=== PATIENT | male | born 1975 | race Caucasian/White ===

== ENCOUNTER 2018-05-06 00:18 | Emergency (ER) | payer OTHER ==
[2018-05-06] MEDS ORDERED: MECLIZINE 12.5 MG TAB PO STA (00:44)
[2018-05-06] MEDS ORDERED: SODIUM CHLORIDE 0.9% 1,000 ML IV STA (00:44)
[2018-05-06] MEDS ORDERED: diphenhydrAMINE 50 MG/ML 1 ML VIAL IVP STA (00:44)
[2018-05-06] MEDS ORDERED: ONDANSETRON 4 MG/2 ML VIAL IVP STA (00:44)
--- NOTE | 2018-05-06 00:53 | ED ---
General Adult HPI - General Source: patient, family, RN notes reviewed Mode of arrival: ambulatory Limitations: no limitations <Gordo Carpenter - Last Filed: 05/06/18 02:46> <Neetu Martínez - Last Filed: 05/06/18 03:08> - General Chief complaint: Recheck/Abnormal Lab/Rx Stated complaint: Dizziness, Headache Time Seen by Provider: 05/06/18 00:32 - History of Present Illness Initial comments: This a 42-year-old male presents emergency Department with multiple complaints. Patient states over the last few days she's had a migraine headache which improved but states he still have a slight headache. Patient battling dizziness. He states the dizziness is worse with movement. He does state that he is a diabetic and is noncompliant with his medications. Patient states that he just took Lantus before he came the emergency department. He did check his blood sugar and was over 500 at home. Patient does state that he eats poorly at work because he does not get the very often. Patient denies any fevers or chills. Patient denies any blurred vision. Patient has no focal weakness. Patient had some nausea associated with the dizziness denies any vomiting. He states that he woke up and was artery shaky with his elevated blood sugar. ( Gordo Carpenter) - Related Data Previous Rx's Medication Instructions Recorded Meclizine [Antivert] 25 mg PO TID PRN #15 tab 05/06/18 Allergies Allergy/AdvReac Type Severity Reaction Status Date / Time Penicillins Allergy Rash/Hives Verified 05/06/18 00:30 Review of Systems ROS Other: All systems not noted in ROS Statement are negative. <Gordo Carpenter - Last Filed: 05/06/18 02:46> ROS Other: All systems not noted in ROS Statement are negative. <Neetu Martínez - Last Filed: 05/06/18 03:08> ROS Statement: Those systems with pertinent positive or pertinent negative responses have been documented in the HPI. Past Medical History Past Medical History: Diabetes Mellitus Additional Past Medical History / Comment(s): back pain. arthritis. neuropathy. History of Any Multi-Drug Resistant Organisms: MRSA Date of last positivie culture/infection: 2014 MDRO Source:: nasal abscess. Past Surgical History: Adenoidectomy, Tonsillectomy Additional Past Surgical History / Comment(s): vasectomy. right wrist nerve repair. Past Psychological History: No Psychological Hx Reported Smoking Status: Former smoker Past Alcohol Use History: Occasional Past Drug Use History: None Reported <Gordo Carpenter - Last Filed: 05/06/18 02:46> General Exam Limitations: no limitations General appearance: alert, in no apparent distress Head exam: Present: atraumatic, normocephalic, normal inspection Eye exam: Present: normal appearance, PERRL, EOMI. Absent: scleral icterus, conjunctival injection, periorbital swelling ENT exam: Present: normal exam, normal oropharynx, mucous membranes moist, TM's normal bilaterally Neck exam: Present: normal inspection, full ROM. Absent: tenderness, meningismus, lymphadenopathy Respiratory exam: Present: normal lung sounds bilaterally. Absent: respiratory distress, wheezes, rales, rhonchi, stridor Cardiovascular Exam: Present: normal rhythm, tachycardia, normal heart sounds. Absent: systolic murmur, diastolic murmur, rubs, gallop, clicks GI/Abdominal exam: Present: soft, normal bowel sounds. Absent: distended, tenderness, guarding, rebound, rigid Neurological exam: Present: alert, oriented X3, CN II-XII intact, reflexes normal. Absent: motor sensory deficit Skin exam: Present: warm, dry, intact, normal color. Absent: rash <Gordo Carpenter - Last Filed: 05/06/18 02:46> Course <Gordo Carpenter - Last Filed: 05/06/18 02:46> <Neetu Martínez P - Last Filed: 05/06/18 03:08> Vital Signs 05/06/18 05/06/18 05/06/18 00:24 02:10 02:19 Temperature 98.3 F Pulse Rate 109 H 102 H Respiratory 20 18 18 Rate Blood Pressure 163/102 136/92 O2 Sat by Pulse 96 97 Oximetry 05/06/18 02:58 Temperature 98.7 F Pulse Rate Respiratory Rate Blood Pressure O2 Sat by Pulse Oximetry - Reevaluation(s) Reevaluation #1: 05/06/18 02:48 Patient reevaluated and updated on results. Patient states she feels much improved after IV fluids, Antivert. Patient his dizziness has resolved. (Gordo Carpenter) EKG Findings - EKG Comments: EKG Findings:: EKG performed at 0:42 sinus tachycardia with a rate of 110 FL 1: 30 QRS 94 QT/QTC 340/460 <Gordo Carpenter - Last Filed: 05/06/18 02:46> Medical Decision Making - Lab Data Result diagrams: 05/06/18 00:50 05/06/18 00:50 <Gordo Carpenter - Last Filed: 05/06/18 02:46> - Lab Data Result diagrams: 05/06/18 00:50 05/06/18 00:50 <Neetu Martínez - Last Filed: 05/06/18 03:08> - Medical Decision Making 42-year-old male presented for multiple complaints. Patient did have noted hyperglycemia. Patient was hydrated, given subcu NovoLog. Patient also complained of dizziness which has resolved after Antivert. Patient's EKG, chest x-ray pain labwork unremarkable. Patient will follow-up with PCP. We discussed better control of his diabetes. Patient states he does have an appointment with his primary care physician. (Gordo Carpenter) I was available for consultation in the emergency department. The history and physical exam were done by the midlevel provider. I was consulted for this patient's care. I reviewed the case with the midlevel provider and based on their presentation of the patient, I agree with the assessment, medical decision making and plan of care as documented. (Neetu Martínez) - Lab Data Lab Results 05/06/18 05/06/18 05/06/18 Range/Units 00:37 00:50 00:50 WBC 11.4 H (3.8-10.6) k/uL RBC 5.14 (4.30-5.90) m/uL Hgb 14.2 (13.0-17.5) gm/dL Hct 41.8 (39.0-53.0) % MCV 81.5 (80.0-100.0) fL MCH 27.7 (25.0-35.0) pg MCHC 33.9 (31.0-37.0) g/dL RDW 14.1 (11.5-15.5) % Plt Count 275 (150-450) k/uL Neutrophils % 70 % Lymphocytes % 19 % Monocytes % 6 % Eosinophils % 2 % Basophils % 0 % Neutrophils # 8.0 H (1.3-7.7) k/uL Lymphocytes # 2.2 (1.0-4.8) k/uL Monocytes # 0.7 (0-1.0) k/uL Eosinophils # 0.2 (0-0.7) k/uL Basophils # 0.1 (0-0.2) k/uL Sodium 134 L (137-145) mmol/L Potassium 4.4 (3.5-5.1) mmol/L Chloride 102 (98-107) mmol/L Carbon Dioxide 23 (22-30) mmol/L Anion Gap 9 mmol/L BUN 18 (9-20) mg/dL Creatinine 0.65 L (0.66-1.25) mg/dL Est GFR (CKD-EPI)AfAm >90 (>60 ml/min/1.73 sqM) Est GFR (CKD-EPI)NonAf >90 (>60 ml/min/1.73 sqM) Glucose 383 H (74-99) mg/dL POC Glucose (mg/dL) 362 H (75-99) mg/dL POC Glu [employer] ID Neetu Howell Calcium 9.5 (8.4-10.2) mg/dL Total Bilirubin 0.6 (0.2-1.3) mg/dL AST 26 (17-59) U/L ALT 40 (21-72) U/L Alkaline Phosphatase 84 (38-126) U/L Troponin I (0.000-0.034) ng/mL Total Protein 7.1 (6.3-8.2) g/dL Albumin 3.7 (3.5-5.0) g/dL Urine Color Urine Appearance (Clear) Urine pH (5.0-8.0) Ur Specific [place] (1.001-1.035) Urine Protein (Negative) Urine Glucose (UA) (Negative) Urine Ketones (Negative) Urine Blood (Negative) Urine Nitrite (Negative) Urine Bilirubin (Negative) Urine Urobilinogen (<2.0) mg/dL Ur Leukocyte Esterase (Negative) Acetone, Qual Negative (Negative) 05/06/18 05/06/18 Range/Units 00:50 01:38 WBC (3.8-10.6) k/uL RBC (4.30-5.90) m/uL Hgb (13.0-17.5) gm/dL Hct (39.0-53.0) % MCV (80.0-100.0) fL MCH (25.0-35.0) pg MCHC (31.0-37.0) g/dL RDW (11.5-15.5) % Plt Count (150-450) k/uL Neutrophils % % Lymphocytes % % Monocytes % % Eosinophils % % Basophils % % Neutrophils # (1.3-7.7) k/uL Lymphocytes # (1.0-4.8) k/uL Monocytes # (0-1.0) k/uL Eosinophils # (0-0.7) k/uL Basophils # (0-0.2) k/uL Sodium (137-145) mmol/L Potassium (3.5-5.1) mmol/L Chloride (98-107) mmol/L Carbon Dioxide (22-30) mmol/L Anion Gap mmol/L BUN (9-20) mg/dL Creatinine (0.66-1.25) mg/dL Est GFR (CKD-EPI)AfAm (>60 ml/min/1.73 sqM) Est GFR (CKD-EPI)NonAf (>60 ml/min/1.73 sqM) Glucose (74-99) mg/dL POC Glucose (mg/dL) (75-99) mg/dL POC Glu [employer] ID Calcium (8.4-10.2) mg/dL Total Bilirubin (0.2-1.3) mg/dL AST (17-59) U/L ALT (21-72) U/L Alkaline Phosphatase (38-126) U/L Troponin I 0.016 (0.000-0.034) ng/mL Total Protein (6.3-8.2) g/dL Albumin (3.5-5.0) g/dL Urine Color Light Yellow Urine Appearance Clear (Clear) Urine pH 6.0 (5.0-8.0) Ur Specific [place] 1.024 (1.001-1.035) Urine Protein Trace H (Negative) Urine Glucose (UA) 4+ H (Negative) Urine Ketones Trace H (Negative) Urine Blood Negative (Negative) Urine Nitrite Negative (Negative) Urine Bilirubin Negative (Negative) Urine Urobilinogen <2.0 (<2.0) mg/dL Ur Leukocyte Esterase Negative (Negative) Acetone, Qual (Negative) Disposition Is patient prescribed a controlled substance at d/c from ED?: No Time of Disposition: 02:49 <Gordo Carpenter - Last Filed: 05/06/18 02:46> <Neetu Martínez P - Last Filed: 05/06/18 03:08> Clinical Impression: Vertigo, Hyperglycemia, Headache Disposition: HOME SELF-CARE Condition: Stable Instructions: Vertigo (ED), Diabetic Hyperglycemia (ED) Additional Instructions: Please return to the Emergency Department if symptoms worsen or any other concerns. Prescriptions: Meclizine [Antivert] 25 mg PO TID PRN #15 tab PRN Reason: Vertigo Referrals: None,Stated [REFERRING] - 1-2 days
--- NOTE | 2018-05-06 01:03 | XR ---
EXAMINATION TYPE: XR chest 2V DATE OF EXAM: 05/06/2018 COMPARISON: NONE HISTORY: Dizziness short of breath TECHNIQUE: Frontal and lateral views of the chest are obtained. FINDINGS: Heart and mediastinum are normal. Lungs are clear. Diaphragm is normal. Bony thorax appear s normal. IMPRESSION: Normal chest
[2018-05-06 01:11] LABS: Basophils # (A) 0.1 k/uL (0-0.2); Basophils % (A) 0 %; Eosinophils # (A) 0.2 k/uL (0-0.7); Eosinophils % (A) 2 %; HCT 41.8 % (39.0-53.0); HGB 14.2 gm/dL (13.0-17.5); Lymphocytes # (A) 2.2 k/uL (1.0-4.8); Lymphocytes % (A) 19 %; MCH 27.7 pg (25.0-35.0); MCHC 33.9 g/dL (31.0-37.0); MCV 81.5 fL (80.0-100.0); Monocytes # (A) 0.7 k/uL (0-1.0); Monocytes % (A) 6 %; Neutrophils % (A) 70 %; Platelet Count 275 k/uL (150-450); RBC 5.14 m/uL (4.30-5.90); RDW 14.1 % (11.5-15.5); WBC 11.4 k/uL (3.8-10.6)
[2018-05-06 01:26] LABS: ALT 40 U/L (21-72); AST 26 U/L (17-59); Albumin 3.7 g/dL (3.5-5.0); Alkaline Phosphatase 84 U/L (38-126); Anion Gap 9 mmol/L; Blood Urea Nitrogen 18 mg/dL (9-20); Calcium 9.5 mg/dL (8.4-10.2); Carbon Dioxide 23 mmol/L (22-30); Chloride 102 mmol/L (98-107); Glucose 383 mg/dL (74-99); Potassium 4.4 mmol/L (3.5-5.1); Sodium 134 mmol/L (137-145); Total Bilirubin 0.6 mg/dL (0.2-1.3); Total Protein 7.1 g/dL (6.3-8.2)
[2018-05-06 01:35] LABS: Glucose,Whole Blood 362 mg/dL (75-99)
[2018-05-06 01:54] LABS: Appearance,Urine Clear (Clear); Bilirubin,Urine Negative (Negative); Blood,Urine Negative (Negative); Color,Urine Light Yellow; Glucose,Urine (UA) 4+ (Negative); Ketones,Urine Trace (Negative); Leukocyte Esterase,Urine Negative (Negative); Nitrite,Urine Negative (Negative); Protein,Urine Trace (Negative); Specific Gravity,Urine 1.024 (1.001-1.035); Urobilinogen,Urine <2.0 mg/dL (<2.0)
[2018-05-06 02:13] VITALS: BP 136/92; PULSE 102; RESP 18
[2018-05-06] MEDS ORDERED: INSULIN ASPART 100 UNIT/ML 1 ML 10 ML VIAL SQ ONE (02:13)
[2018-05-06 03:05] VITALS: TEMP 98.7
[2018-05-06 03:23] LABS: Glucose,Whole Blood 314 mg/dL (75-99)
== END 2018-05-06 02:59 | disposition home or self-care (01) ==
LOC: EC 00:18
DX: E11.65 Type 2 diabetes mellitus with hyperglycemia (principal); R51 Headache; R00.0 Tachycardia, unspecified; R11.0 Nausea; Z87.891 Personal history of nicotine dependence; Z88.0 Allergy status to penicillin
CPT/HCPCS: 36415; 93005; 80053; 82009; 84484; 85025; 81003; 71046; 99284; 96374; 96375; 96361; J1200; J2405

== ENCOUNTER 2018-05-26 18:46 | Emergency (ER) | payer OTHER ==
[2018-05-26 19:42] VITALS: TEMP 98.6
[2018-05-26] MEDS ORDERED: CYCLOBENZAPRINE 5 MG TAB PO STA (20:27)
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
[2018-05-26 21:34] VITALS: BP 170/96; PULSE 94; RESP 20
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
== END 2018-05-26 21:55 | disposition home or self-care (01) ==
LOC: EC 18:46
DX: M54.5 Low back pain (principal); M54.2 Cervicalgia; Z86.14 Personal history of Methicillin resistant Staphylococcus aureus infection; Z87.891 Personal history of nicotine dependence; Z88.0 Allergy status to penicillin; V43.52XA Car driver injured in collision with other type car in traffic accident, initial encounter; Y92.410 Unspecified street and highway as the place of occurrence of the external cause
CPT/HCPCS: 70450; 71046; 72100; 72125; 99284

== ENCOUNTER 2020-03-19 11:41 | Emergency (ER) | payer OTHER ==
[2020-03-19 12:03] VITALS: BP 153/92; PULSE 120; RESP 18; TEMP 98.6
[2020-03-19 12:28] LABS: Appearance,Urine Clear (Clear); Bilirubin,Urine Negative (Negative); Blood,Urine Negative (Negative); Color,Urine Yellow; Glucose,Urine (UA) 3+ (Negative); Ketones,Urine Negative (Negative); Leukocyte Esterase,Urine Negative (Negative); Mucus,Urine Few /hpf; Nitrite,Urine Negative (Negative); Protein,Urine 2+ (Negative); Specific Gravity,Urine 1.025 (1.001-1.035); Squamous Epithelial Cell,Urine <1 /hpf (0-4); Urobilinogen,Urine <2.0 mg/dL (<2.0); WBC,Urine <1 /hpf (0-5)
--- NOTE | 2020-03-19 13:18 | ED ---
General Adult HPI - General Chief complaint: Urogenital Stated complaint: Male Time Seen by Provider: 03/19/20 13:04 Source: patient Mode of arrival: ambulatory Limitations: no limitations - History of Present Illness Initial comments: Dictation was produced using Zauber dictation software. please excuse any grammatical, word or spelling errors. This patient was cared for during a federal and state declared state of emergency secondary to Covid 19 Chief Complaint: 44-year-old male presents with left-sided flank pain and testicular pain History of Present Illness: 44-year-old male for the last 3 days has been having worsening left-sided flank pain. He states the flank pain radiates down to his left testicle. Denies any history of kidney stones. No nausea vomiting diarrhea. He reports that his pain is constant and more severe with standing up. Denies any fever or constitutional symptoms. He has past medical history of diabetes and hypertension. Patient force that he has had an abscess to his left groin area in the past. Denies any burning on urination. No changes in his urine color. The ROS documented in this emergency department record has been reviewed and confirmed by me. Those systems with pertinent positive or negative responses have been documented in the HPI. All other systems are other negative and/or noncontributory. PHYSICAL EXAM: General Impression: Alert and oriented x3, not in acute distress HEENT: Normocephalic atraumatic, extra-ocular movements intact, pupils equal and reactive to light bilaterally, mucous membranes moist. Cardiovascular: Heart regular rate and rhythm Chest: Able to complete full sentences, no retractions, no tachypnea Abdomen: abdomen soft, non-tender, non-distended, no organomegaly Musculoskeletal: Pulses present and equal in all extremities, no peripheral edema Motor: no focal deficits noted Neurological: CN II-XII grossly intact, no focal motor or sensory deficits noted : No perennial induration or erythema. Testicles are equal in size. There is no relief of symptoms with elevation of the left testicle. There is no irregularities and texture with palpation of the testicles Skin: Intact with no visualized rashes Psych: Normal affect and mood ED course: 44-year-old male presents with left flank pain and left testicular pain. As upon arrival shows heart rate of 120, worse vital signs within acceptable limits. Laboratory evaluation obtained. Mild leukocytosis of 12.7 with neutrophils 9.2. Metabolic panel shows glucose 280. Urinalysis is negative. Rest metabolic panel is negative. Rest of labs are negative. Computed tomography scan of the abdomen and pelvis shows no acute processes. There are no renal stones or hydronephrosis. Osseous structure does appear to be intact. Scrotal ultrasound shows no testicular torsion or mass. There is a small right-sided hydrocele. This is essentially negative ultrasound of the scrotum. Patient reevaluated at bedside 5 be stable medical condition. Patient be discharged. Patient's s ymptoms likely secondary to musculoskeletal back pain. - Related Data Previous Rx's Medication Instructions Recorded Meclizine [Antivert] 25 mg PO TID PRN #15 tab 05/06/18 Cyclobenzaprine [Flexeril] 10 mg PO TID #20 tab 05/26/18 Ibuprofen [Motrin] 600 mg PO Q6HR PRN #40 day 05/26/18 Allergies Allergy/AdvReac Type Severity Reaction Status Date / Time Penicillins Allergy Rash/Hives Verified 03/19/20 11:59 Review of Systems ROS Statement: Those systems with pertinent positive or pertinent negative responses have been documented in the HPI. ROS Other: All systems not noted in ROS Statement are negative. Past Medical History Past Medical History: Diabetes Mellitus Additional Past Medical History / Comment(s): back pain. arthritis. neuropathy. History of Any Multi-Drug Resistant Organisms: MRSA Date of last positivie culture/infection: 2014 MDRO Source:: nasal abscess. Past Surgical History: Adenoidectomy, Tonsillectomy Additional Past Surgical History / Comment(s): vasectomy. left wrist nerve repair. Past Psychological History: No Psychological Hx Reported Smoking Status: Former smoker Past Alcohol Use History: Occasional Past Drug Use History: Marijuana General Exam Limitations: no limitations Course Vital Signs 03/19/20 11:59 Temperature 98.6 F Pulse Rate 120 H Respiratory 18 Rate Blood Pressure 153/92 O2 Sat by Pulse 97 Oximetry Medical Decision Making - Lab Data Result diagrams: 03/19/20 13:44 03/19/20 13:44 Lab Results 03/19/20 03/19/20 03/19/20 Range/Units 12:19 13:44 13:44 WBC 12.7 H (3.8-10.6) k/uL RBC 5.69 (4.30-5.90) m/uL Hgb 15.9 (13.0-17.5) gm/dL Hct 45.8 (39.0-53.0) % MCV 80.4 (80.0-100.0) fL MCH 27.9 (25.0-35.0) pg MCHC 34.7 (31.0-37.0) g/dL RDW 13.6 (11.5-15.5) % Plt Count 277 (150-450) k/uL MPV 7.1 Neutrophils % 72 % Lymphocytes % 19 % Monocytes % 5 % Eosinophils % 2 % Basophils % 1 % Neutrophils # 9.2 H (1.3-7.7) k/uL Lymphocytes # 2.4 (1.0-4.8) k/uL Monocytes # 0.7 (0-1.0) k/uL Eosinophils # 0.2 (0-0.7) k/uL Basophils # 0.1 (0-0.2) k/uL Sodium 133 L (137-145) mmol/L Potassium 4.6 (3.5-5.1) mmol/L Chloride 103 (98-107) mmol/L Carbon Dioxide 25 (22-30) mmol/L Anion Gap 5 mmol/L BUN 14 (9-20) mg/dL Creatinine 0.78 (0.66-1.25) mg/dL Est GFR (CKD-EPI)AfAm >90 (>60 ml/min/1.73 sqM) Est GFR (CKD-EPI)NonAf >90 (>60 ml/min/1.73 sqM) Glucose 280 H (74-99) mg/dL Calcium 9.4 (8.4-10.2) mg/dL Urine Color Yellow Urine Appearance Clear (Clear) Urine pH 6.0 (5.0-8.0) Ur Specific [place] 1.025 (1.001-1.035) Urine Protein 2+ H (Negative) Urine Glucose (UA) 3+ H (Negative) Urine Ketones Negative (Negative) Urine Blood Negative (Negative) Urine Nitrite Negative (Negative) Urine Bilirubin Negative (Negative) Urine Urobilinogen <2.0 (<2.0) mg/dL Ur Leukocyte Esterase Negative (Negative) Urine WBC <1 (0-5) /hpf Ur Squamous Epith Cells <1 (0-4) /hpf Urine Mucus Few H (None) /hpf Disposition Clinical Impression: Back pain Disposition: HOME SELF-CARE Condition: Good Instructions (If sedation given, give patient instructions): Acute Low Back Pain (ED) Additional Instructions: Urinalysis is pending urine cultures. You'll be notified if you need to be started on antibiotics and 48-72 hours. Is patient prescribed a controlled substance at d/c from ED?: No Referrals: Nonstaff,Physician [Primary Care Provider] - 1-2 days Time of Disposition: 15:01
--- NOTE | 2020-03-19 13:50 | CT ---
EXAMINATION TYPE: CT abdomen pelvis wo con DATE OF EXAM: 03/19/2020 HISTORY: Left sided flank and testicular pain CT DLP: 2333.9 mGycm. Automated Exposure Control for Dose Reduction was Utilized. TECHNIQUE: CT scan of the abdomen and pelvis is performed without oral or IV contrast. COMPARISON: NONE FINDINGS: Within the limitations of a non-contrast study, the following observations are made. LUNG BASES: No significant abnormality is appreciated. LIVER/GB: Liver is diffusely low dense consistent with diffuse fatty infiltration. PANCREAS: No significant abnormality is seen. SPLEEN: No significant abnormality is seen. ADRENALS: No significant abnormality is seen. KIDNEYS: No renal stones or hydronephrosis is present bilaterally. Suspect subcentimeter thin-walled cyst lower pole left kidney coronal image 76. Bladder poorly distended without intraluminal calculus. Mild concentric wall thickening should be correlated clinically to exclude acute cystitis. Scattered tiny bilateral pelvic phleboliths. BOWEL: Normal appearing appendix from cecum in the right pelvis. No suspicious small or large bowel d ilatation. GENITAL ORGANS: No gross abnormality seen. LYMPH NODES: No greater than 1cm abdominal or pelvic lymph nodes are appreciated. OSSEOUS STRUCTURES: Right-sided pars defect L5 level. No significant spondylolisthesis. Mild narrowin g of both hip joints. OTHER: No significant additional abnormality is seen. IMPRESSION: No renal stones or hydronephrosis is seen bilaterally.
[2020-03-19 13:54] LABS: Basophils # (A) 0.1 k/uL (0-0.2); Basophils % (A) 1 %; Eosinophils # (A) 0.2 k/uL (0-0.7); Eosinophils % (A) 2 %; HCT 45.8 % (39.0-53.0); HGB 15.9 gm/dL (13.0-17.5); Lymphocytes # (A) 2.4 k/uL (1.0-4.8); Lymphocytes % (A) 19 %; MCH 27.9 pg (25.0-35.0); MCHC 34.7 g/dL (31.0-37.0); MCV 80.4 fL (80.0-100.0); Mean Platelet Volume 7.1; Monocytes # (A) 0.7 k/uL (0-1.0); Monocytes % (A) 5 %; Neutrophils # (A) 9.2 k/uL (1.3-7.7); Neutrophils % (A) 72 %; Platelet Count 277 k/uL (150-450); RBC 5.69 m/uL (4.30-5.90); RDW 13.6 % (11.5-15.5); WBC 12.7 k/uL (3.8-10.6)
[2020-03-19 14:02] LABS: African American GFR (CKD) >90 (>60 ml/min/1.73 sqM); Anion Gap 5 mmol/L; Blood Urea Nitrogen 14 mg/dL (9-20); Calcium 9.4 mg/dL (8.4-10.2); Carbon Dioxide 25 mmol/L (22-30); Chloride 103 mmol/L (98-107); Glucose 280 mg/dL (74-99); Non-African American GFR(CKD) >90 (>60 ml/min/1.73 sqM); Potassium 4.6 mmol/L (3.5-5.1); Sodium 133 mmol/L (137-145)
--- NOTE | 2020-03-19 14:32 | US ---
EXAMINATION TYPE: US scrotum with doppler. Grayscale and color Doppler Duplex imaging performed of t he scrotum. DATE OF EXAM: 03/19/2020 COMPARISON: NONE CLINICAL HISTORY: L testicle pain. Left side pain. No injury per patient. EXAM MEASUREMENTS: TESTICLES: Right Testicle: 3.9 x 4.2 x 2.4 cm Left Testicle: 4.5 x 3.4 x 2.4 cm EPIDIDYMIS HEAD: Right Epididymis: 1.5 x 1.1 x 0.8 cm Left Epididymis: 1.2 x 1.0 x 1.0 cm Doppler performed to assess for testicular vascularity; good bilateral color flow and waveforms are s een. There is no evidence of testicular torsion. Presence of hydroceles: Right Presence of varicoceles: no Right calcification in scrotal sac = 0.4 cm. Left calcification in scrotal sac = 0.6 cm. Left epidi dymal cystic lesion in head = 0.6 x 0.5 x 0.7 cm IMPRESSION: No testicular torsion or mass. Calcifications are present. Left side epididymal cyst. The re is small right-sided hydrocele.
== END 2020-03-19 15:14 | disposition home or self-care (01) ==
LOC: EC 11:41
DX: M54.9 Dorsalgia, unspecified (principal); E11.40 Type 2 diabetes mellitus with diabetic neuropathy, unspecified; I10 Essential (primary) hypertension; N43.3 Hydrocele, unspecified; N50.3 Cyst of epididymis; D72.829 Elevated white blood cell count, unspecified; Z88.0 Allergy status to penicillin; Z87.891 Personal history of nicotine dependence
CPT/HCPCS: 36415; 74176; 76870; 80048; 81001; 85025; 93975; 99284

== ENCOUNTER 2020-08-08 13:37 | Emergency (ER) | payer OTHER ==
--- NOTE | 2020-08-08 15:12 | XR ---
EXAMINATION TYPE: XR chest 2V DATE OF EXAM: 08/08/2020 COMPARISON: Prior chest x-ray May 26, 2018 HISTORY: Increasing shortness of breath and cough with body aches. TECHNIQUE: Frontal and lateral views of the chest are obtained. FINDINGS: There are new bilateral multifocal opacities. Stable somewhat low lung volumes. The cardia c silhouette size is stable and within normal limits. The osseous structures are intact. IMPRESSION: New Bilateral multifocal and confluent opacities consistent with covid-19 infection as s uspected clinically.
[2020-08-08] MEDS ORDERED: ACETAMINOPHEN TAB 500 MG TAB PO STA (16:24)
[2020-08-08] MEDS ORDERED: IBUPROFEN 600 MG TAB PO STA (16:24)
[2020-08-08] MEDS ORDERED: SODIUM CHLORIDE 0.9% 50 ML IVPB ONE (16:30)
--- NOTE | 2020-08-08 16:35 | ED ---
General Adult HPI - General Chief complaint: Shortness of Breath Stated complaint: Covid+, fever, vomiting Time Seen by Provider: 08/08/20 14:50 Source: patient, RN notes reviewed, old records reviewed Mode of arrival: ambulatory Limitations: no limitations - History of Present Illness Initial comments: This is a 44-year-old male who presents emergency Department who was tested positive for COVID on Saturday. Patient states he was having symptoms 8 days ago. Patient states that he's had shortness of breath and a cough he has had some chills but no fever that he knows of. Patient states he did not have diarrhea and he has not lost states she is now. Patient has some abdominal discomfort occasionally especially when he is coughing but right now he is having some cough and shortness of breath with exertion. He denies chest pain or palpitations. Patient denies lightheadedness or dizziness. Patient denies any calf pain or swelling of the legs. - Related Data Previous Rx's Medication Instructions Recorded Meclizine [Antivert] 25 mg PO TID PRN #15 tab 05/06/18 Cyclobenzaprine [Flexeril] 10 mg PO TID #20 tab 05/26/18 Ibuprofen [Motrin] 600 mg PO Q6HR PRN #40 day 05/26/18 Allergies Allergy/AdvReac Type Severity Reaction Status Date / Time Penicillins Allergy Rash/Hives Verified 03/19/20 11:59 Review of Systems ROS Statement: Those systems with pertinent positive or pertinent negative responses have been documented in the HPI. ROS Other: All systems not noted in ROS Statement are negative. Past Medical History Past Medical History: Diabetes Mellitus Additional Past Medical History / Comment(s): back pain. arthritis. neuropathy. History of Any Multi-Drug Resistant Organisms: MRSA Date of last positivie culture/infection: 2014 MDRO Source:: nasal abscess. Past Surgical History: Adenoidectomy, Tonsillectomy Additional Past Surgical History / Comment(s): vasectomy. left wrist nerve repair. Past Psychological History: No Psychological Hx Reported Smoking Status: Former smoker Past Alcohol Use History: Occasional Past Drug Use History: Marijuana General Exam - General Exam Comments Initial Comments: GENERAL: Patient is well-developed and well-nourished. Patient is nontoxic and well- hydrated and is in mild distress. ENT: Neck is soft and supple. No significant lymphadenopathy is noted. Oropharynx is clear. Moist mucous membranes. Neck has full range of motion without eliciting any pain. EYES: The sclera were anicteric and conjunctiva were pink and moist. Extraocular movements were intact and pupils were equal round and reactive to light. Eyelids were unremarkable. PULMONARY: Unlabored respirations. Good breath sounds bilaterally. Patient has crackles in both bases CARDIOVASCULAR: There is a regular rate and rhythm without any murmurs gallops or rubs. ABDOMEN: Soft and nontender with normal bowel sounds. SKIN: Skin is clear with no lesions or rashes and otherwise unremarkable. NEUROLOGIC: Patient is alert and oriented x3. Cranial nerves II through XII are grossly intact. Motor and sensory are also intact. Normal speech, volume and content. Symmetrical smile. Cerebellar exam grossly intact. MUSCULOSKELETAL: Normal extremities with adequate strength and full range of motion. No lower extremity swelling or edema. No calf tenderness. LYMPHATICS: No significant lymphadenopathy is noted PSYCHIATRIC: Normal psychiatric evaluation. Limitations: no limitations Course Vital Signs 08/08/20 14:49 Temperature 97.6 F Pulse Rate 114 H Respiratory 18 Rate Blood Pressure 154/90 O2 Sat by Pulse 92 L Oximetry Medical Decision Making - Medical Decision Making Chest x-ray shows bilateral opacities consistent with COVID pneumonia. Patient wants to get monoclonal antibodies - Lab Data Lab Results 08/08/20 Range/Units 14:57 Coronavirus (PCR) Detected A (Not Detectd) Disposition Clinical Impression: Pneumonia due to COVID-19 virus Disposition: HOME SELF-CARE Instructions (If sedation given, give patient instructions): Coronavirus Disease 2019 (COVID-19) Additional Instructions: Patient needs to return if he has more difficulty breathing or any new symptoms. Is patient prescribed a controlled substance at d/c from ED?: No Referrals: Nonstaff,Physician [Primary Care Provider] - 1-2 days Time of Disposition: 16:36
[2020-08-08] MEDS ORDERED: BAMLANIVIMAB (EUA) 700 MG, ETESEVIMAB (EUA) 1,400 MG in SODIUM CHLORIDE 0.9% 50 ML IVPB ONE (17:30)
[2020-08-08 18:51] VITALS: BP 150/99; PULSE 110; RESP 18; TEMP 98.8
== END 2020-08-08 18:50 | disposition home or self-care (01) ==
LOC: EC 13:37
DX: U07.1 COVID-19 (principal); J12.82 Pneumonia due to coronavirus disease 2019; E11.9 Type 2 diabetes mellitus without complications; F12.90 Cannabis use, unspecified, uncomplicated; Z90.49 Acquired absence of other specified parts of digestive tract; Z90.09 Acquired absence of other part of head and neck; Z87.891 Personal history of nicotine dependence
CPT/HCPCS: 87635; 71046; 99285; 96365; Q0245

== ENCOUNTER 2021-04-03 17:49 | Emergency (ER) | payer OTHER ==
[2021-04-03 18:42] VITALS: TEMP 98.7
[2021-04-03] MEDS ORDERED: ACET/COD 300 MG/30 MG STARTER PACK 6 TAB BTL PO STA (18:48)
--- NOTE | 2021-04-03 18:52 | ED ---
Lower Extremity Injury HPI - General Chief Complaint: Extremity Injury, Lower Stated Complaint: ankle swelling/injury Time Seen by Provider: 04/03/21 18:42 Source: patient Mode of arrival: wheelchair Limitations: no limitations - History of Present Illness Initial Comments: 45 year-old male patient presents to the emergency department for evaluation of right ankle and foot swelling for the last couple of days. States he was walking today when he felt a snap and had onset of pain. States he is barely able to walk due to the pain. States he has had pain to both calves over the last couple of days. Denies chest pain or shortness of breath. Denies history of blood clot. Does have diabetes and neuropathy. Takes ibuprofen on a daily basis, did not help his pain. He denies any known injury. Denies redness to the area. Patient denies any recent rash, fever, chills, cough, abdominal pain, nausea, vomiting, diarrhea, constipation, back pain, numbness, tingling, dizziness, weakness, hematuria, dysuria, urinary urgency, urinary frequency, headache, visual changes, or any other complaints. - Related Data Home Medications Medication Instructions Recorded Confirmed Atorvastatin [Lipitor] 20 mg PO DAILY 04/03/21 04/03/21 Fexofenadine HCl [Lindsey Allergy] 180 mg PO DAILY 04/03/21 04/03/21 INSULIN LISPRO (humaLOG) [humaLOG] 30 unit SQ BID@1300,2100 04/03/21 04/03/21 INSULIN LISPRO (humaLOG) [humaLOG] 40 unit SQ DAILY@0500 04/03/21 04/03/21 Ibuprofen 800 mg PO TID@0500,1300,209904/03/21 04/03/21 Lisinopril [Prinivil] 10 mg PO DAILY 04/03/21 04/03/21 Pregabalin [Lyrica] 50 mg PO TID@0500,1300,2100 04/03/21 04/03/21 traMADol HCL [Ultram] 50 mg PO TID@0500,1300,2100 04/03/21 04/03/21 Previous Rx's Medication Instructions Recorded HYDROcodone/APAP 5-325MG [[place] 5] 1 each PO Q6HR PRN #12 tab 04/03/21 Ibuprofen [Motrin] 600 mg PO Q8HR PRN #30 tab 04/03/21 Allergies Allergy/AdvReac Type Severity Reaction Status Date / Time Penicillins Allergy Rash/Hives Verified 04/03/21 21:10 Review of Systems ROS Statement: Those systems with pertinent positive or pertinent negative responses have been documented in the HPI. ROS Other: All systems not noted in ROS Statement are negative. Past Medical History Past Medical History: Diabetes Mellitus Additional Past Medical History / Comment(s): back pain. arthritis. neuropathy. History of Any Multi-Drug Resistant Organisms: MRSA Date of last positivie culture/infection: 2014 MDRO Source:: nasal abscess. Past Surgical History: Adenoidectomy, Tonsillectomy Additional Past Surgical History / Comment(s): vasectomy. left wrist nerve repair. Past Psychological History: No Psychological Hx Reported Smoking Status: Former smoker Past Alcohol Use History: Occasional Past Drug Use History: Marijuana General Exam Limitations: no limitations General appearance: alert, in no apparent distress, other (This is a well- developed, well-nourished adult male in no acute distress.) ENT exam: Present: normal exam, normal oropharynx, mucous membranes moist Respiratory exam: Present: normal lung sounds bilaterally. Absent: respiratory distress, wheezes, rales, rhonchi, stridor Cardiovascular Exam: Present: normal rhythm, tachycardia, normal heart sounds. Absent: systolic murmur, diastolic murmur, rubs, gallop, clicks GI/Abdominal exam: Present: soft, normal bowel sounds. Absent: distended, tenderness, guarding, rebound, rigid Extremities exam: Present: full ROM, normal capillary refill, pedal edema (Right non pitting), other (Swelling right lower leg, ankle, foot. Non-pitting. No overlying erythema. It is otherwise pink, warm, dry. Cap refill less than 3 seconds. Pedal and posttibial pulses 2+.). Absent: tenderness, joint swelling, calf tenderness Neurological exam: Present: alert, oriented X3, CN II-XII intact Psychiatric exam: Present: normal affect, normal mood Skin exam: Present: warm, dry, intact, normal color. Absent: rash Course Vital Signs 04/03/21 04/03/21 18:39 23:06 Temperature 98.7 F Pulse Rate 120 H 98 Respiratory 16 20 Rate Blood Pressure 162/85 145/88 O2 Sat by Pulse 98 96 Oximetry Procedures - Orthopedic Splinting/Casting Injury #1 Side: right Lower Extremity Injury Location: short leg Lower Extremity Immobilizer: posterior splint, Haseeb wrap, synthetic pre-padded splint Medical Decision Making - Medical Decision Making 45-year-old male patient presents to the emergency department today for evaluation of 3 day history of right ankle and foot swelling. Today felt a pop and had immediate onset of pain and was unable to walk on the foot. Did take ibuprofen without relief. Right ankle x-ray was obtained and showed possible calcaneal fracture. Dedicated calcaneal x-ray was obtained and showed a nondisplaced anterior calcaneal fracture. I did discuss the case with on-call developmental specialist Dr. Post recommends computed tomography scan and discharge with a splint. He is instructed to follow-up in office. He is instructed to remain nonweightbearing and is given crutches here. He was given something for pain. Return parameters were discussed in detail. We did discuss specifically compartment syndrome. He verbalizes understanding and agrees with this plan. My attending is Dr. Martínez. - Radiology Data Radiology results: report reviewed, image reviewed 3 Views of the right ankle showed suspicious nondisplaced calcaneal fracture. US venous doppler duplex right leg was negative for DVT. 2 views of the right calcaneus are obtained. Report was reviewed in its entirety. Impression by Dr. Francis shows calcaneal fracture. CT of the right foot without contrast was obtained. Report was reviewed in its entirety. Impression by Dr. Francis shows anterior calcaneal fracture. Disposition Clinical Impression: Right calcaneal fracture Disposition: HOME SELF-CARE Condition: Good Instructions (If sedation given, give patient instructions): Calcaneal Fracture (ED), Splint Care (ED) Additional Instructions: Rest, ice, elevate the right foot. Use crutches, remain nonweightbearing until follow-up with orthopedics. Call them tomorrow for an appointment. Return for any new, worsening, or concerning symptoms. Prescriptions: Ibuprofen [Motrin] 600 mg PO Q8HR PRN #30 tab PRN Reason: Pain HYDROcodone/APAP 5-325MG [[place] 5] 1 each PO Q6HR PRN #12 tab PRN Reason: Pain Is patient prescribed a controlled substance at d/c from ED?: Yes When asked, does pt state using other controlled substances?: No If prescribed controlled substance>3 days was MAPS reviewed?: Prescribed <3 Days If opioid is for acute pain is fill amount 7 days or less?: Yes If Rx opioid, was Start Talking consent form obtained?: Yes Referrals: Mildred Garza MD [Primary Care Provider] - 1-2 days Harshad Post MD [Medical Doctor] - 1-2 days Time of Disposition: 22:49 Decision to Admit Reason: Admit from EC Decision Date: 04/03/21 Decision Time: 22:02
--- NOTE | 2021-04-03 19:14 | XR ---
Result: History: Pain. Comparison: None available. Technique: 3 views of the right ankle. Findings: There is linear lucency within the anterior calcaneus. The remaining visualized osseous structures ar e anatomic alignment. No evidence of dislocation. There are small plantar and dorsal calcaneal spurs. Otherwise the joint spaces are preserved. Impression: Suspicious nondisplaced calcaneal fracture.
--- NOTE | 2021-04-03 19:59 | US ---
EXAMINATION TYPE: US venous doppler duplex LE RT DATE OF EXAM: 04/03/2021 7:49 PM COMPARISON: NONE CLINICAL HISTORY: Pain/swelling x3 days. Pain and swelling. No hx of DVT. SIDE PERFORMED: Right TECHNIQUE: The lower extremity deep venous system is examined utilizing real time linear array sonog desirae with graded compression, doppler sonography and color-flow sonography. VESSELS IMAGED: Common Femoral Vein Deep Femoral Vein Greater Saphenous Vein * Femoral Vein Popliteal Vein Small Saphenous Vein * Proximal Calf Veins (* superficial vessels) Slightly limited due to pain. Right Leg: Internal echoes seen within popliteal vein, but vessel appears to compress and show color flow. Rouleaux flow seen throughout vessels. No definite evidence of DVT at this time. IMPRESSION: No acute DVT of the right lower extremity. Rouleaux flow noted and can be seen in slow flow.
--- NOTE | 2021-04-03 20:28 | XR ---
RESULT: HISTORY: right ankle pain TECHNIQUE: 2 views of the right calcaneus were obtained. COMPARISON: Same-day radiograph. FINDINGS: There is nondisplaced fracture of the anterior calcaneus. No evidence of dislocation. Small plantar a nd dorsal calcaneal enthesophytes. IMPRESSION: Calcaneal fracture.
[2021-04-03] MEDS ORDERED: MORPHINE SULFATE 4 MG/ML SYRINGE IM STA (22:08)
--- NOTE | 2021-04-03 22:15 | CT ---
EXAMINATION TYPE: CT foot RT wo con DATE OF EXAM: 04/03/2021 COMPARISON: Same-day radiographs. HISTORY: pain CT DLP: 307.[address] images of the right foot was performed without contrast. Automated exposure control for dose reduction was used. Volumetric 3-D images generated on an independent workstation were provided and reviewed. FINDINGS: There is nondisplaced linear fracture of the anterior calcaneus. There is mild soft tissue edema abou t the imaged foot. There is a 8 mm well-corticated ossific density adjacent to the calcaneal anterior process, consistent with chronic change. No evidence of dislocation. No significant joint effusion. Small to moderate size plantar and tiny dorsal calcaneal enthesophyte seen. IMPRESSION: ANTERIOR CALCANEAL FRACTURE.
[2021-04-03 23:08] VITALS: BP 145/88; PULSE 98; RESP 20
== END 2021-04-03 23:08 | disposition home or self-care (01) ==
LOC: EC 17:49
DX: S92.014A Nondisplaced fracture of body of right calcaneus, initial encounter for closed fracture (principal); E11.9 Type 2 diabetes mellitus without complications; F12.90 Cannabis use, unspecified, uncomplicated; Z79.4 Long term (current) use of insulin; Z88.0 Allergy status to penicillin; Z87.891 Personal history of nicotine dependence; X58.XXXA Exposure to other specified factors, initial encounter
CPT/HCPCS: 99284; 96372; 29515; 73610; 73650; 93971; 73700; J2270

== ENCOUNTER → 2021-07-05 | Outpatient (CLI) | payer OTHER ==
--- NOTE | 2021-07-05 13:55 | US ---
EXAMINATION TYPE: US venous doppler duplex LE RT DATE OF EXAM: 07/05/2021 1:42 PM COMPARISON: US CLINICAL HISTORY: M79.661,R22.41 PAIN AND SWELLING RT LEG. Pain and swelling right leg, no prior DVT, not on blood thinners SIDE PERFORMED: Right TECHNIQUE: The lower extremity deep venous system is examined utilizing real time linear array sonog desirae with graded compression, doppler sonography and color-flow sonography. VESSELS IMAGED: Common Femoral Vein Deep Femoral Vein Greater Saphenous Vein * Femoral Vein Popliteal Vein Small Saphenous Vein * Proximal Calf Veins (* superficial vessels) Right Leg: Negative for DVT IMPRESSION: No evidence for DVT at this time
== END | disposition home or self-care (01) ==
LOC: RADUSWWP 13:18
PROVIDERS: ATTEND Internal Medicine
DX: M79.661 Pain in right lower leg (principal); R22.41 Localized swelling, mass and lump, right lower limb

== ENCOUNTER 2021-07-28 12:27 | Day surgery (SDC) | payer OTHER ==
[2021-07-26 10:04] VITALS: BMI 43.4
[~2021-07-28 12:27] MED LIST: DEXAMETHASONE SOD PHOSPHATE 4 MG/ML 1 ML VIAL IV ONE; HYDROmorphone 0.5 MG/0.5 ML SYRINGE IVP PRN; LACTATED RINGERS 1,000 ML IV SCH; LIDOCAINE 1% (10MG/ML) FOR IV START INTRADERMA PRN; MIDAZOLAM 2 MG/2 ML VIAL IV PRN; ONDANSETRON 4 MG/2 ML VIAL IVP ONE; ceFAZolin 3 GM in SODIUM CHLORIDE 0.9% 100 ML IVPB PRN
[2021-07-28 13:14] LABS: Glucose,Whole Blood 195 mg/dL (75-99)
[2021-07-28] MEDS ORDERED: MIDAZOLAM 2 MG/2 ML VIAL IVP ONE (13:41)
--- NOTE | 2021-07-28 14:10 | P.ANPRN ---
Procedure Note - Anesthesia - Nerve Block Performed Right Adductor Canal Single Time Out Performed: Yes (1340) Date of Procedure: 07/28/21 Procedure Start Time: 13:40 Procedure Stop Time: 13:46 Location of Patient: PreOp Indication: Acute Post-Operative Pain, Dx/Pain Location (Right Foot), Requested by Surgeon Specifically requested for management of pain by DrKinsey: Sammy Law Sedation Type: Sedate with meaningful contact maintained Preparation: Sterile Prep Position: Supine Catheter: None Needle Types: Pajunk Needle Gauge: 21 (100n mm) Ultrasound used to visualize needle placement: Yes Ultrasound used to observe medication spread: Yes Injectate: 0.5% Ropivacaine (see comment for volume) (15 cc) Blood Aspirated: No Pain Paresthesia on Injection Noted: No Resistance on Injection: Normal Image Stored and Saved: Yes Events: Uneventful and Well Tolerated Right Popliteal Single Time Out Performed: Yes Date of Procedure: 07/28/21 Procedure Start Time: 13:47 Procedure Stop Time: 13:56 Location of Patient: PreOp Indication: Acute Post-Operative Pain, Dx/Pain Location (Right Foot), Requested by Surgeon Specifically requested for management of pain by DrKinsey: Sammy Law Sedation Type: Sedate with meaningful contact maintained Preparation: Sterile Prep Position: Left Lateral Catheter: None Needle Types: Pajunk Needle Gauge: 21 (100 mm) Ultrasound used to visualize needle placement: Yes Ultrasound used to observe medication spread: Yes Injectate: 0.5% Ropivacaine (see comment for volume) (25 cc)
[2021-07-28] MEDS ORDERED: ROCURONIUM 10 MG/ML (5 ML VIAL) IV ONE (14:21)
[2021-07-28] MEDS ORDERED: GLYCOPYRROLATE 0.2 MG/ML 2 ML VIAL ONE (14:21)
[2021-07-28] MEDS ORDERED: ROPIVACAINE 5 MG/ML 30 ML VIAL ONE (14:21)
[2021-07-28] MEDS ORDERED: SUCCINYLCHOLINE CHLORIDE 100 MG/5 ML SYR IV ONE (14:21)
[2021-07-28] MEDS ORDERED: fentaNYL (PF) 50 MCG/ML 2 ML AMP ONE (14:21)
[2021-07-28] MEDS ORDERED: HYDROmorphone (PF) 1 MG/ML ONE (14:21)
[2021-07-28] MEDS ORDERED: PROPOFOL 10 MG/ML 20 ML VIAL IV ONE (14:21)
[2021-07-28] MEDS ORDERED: LIDOCAINE 1% INJ 10MG/ML (20 ML MDV) ONE (14:21)
[2021-07-28] MEDS ORDERED: NEOSTIGMINE 1 MG/ML 10 ML VIAL ONE (14:21)
[2021-07-28 14:28] LABS: ALT 25 U/L (4-49); AST 29 U/L (17-59); African American GFR (CKD) >90 (>60 ml/min/1.73 sqM); Albumin 3.6 g/dL (3.5-5.0); Alkaline Phosphatase 149 U/L (38-126); Anion Gap 9 mmol/L; Blood Urea Nitrogen 11 mg/dL (9-20); Calcium 8.9 mg/dL (8.4-10.2); Carbon Dioxide 23 mmol/L (22-30); Chloride 103 mmol/L (98-107); Glucose 177 mg/dL (74-99); Non-African American GFR(CKD) >90 (>60 ml/min/1.73 sqM); Potassium 4.1 mmol/L (3.5-5.1); Sodium 135 mmol/L (137-145); Total Bilirubin 0.7 mg/dL (0.2-1.3); Total Protein 7.6 g/dL (6.3-8.2)
[2021-07-28] MEDS ORDERED: LACTATED RINGERS 1,000 ML IV ONE (14:46)
[2021-07-28 16:45] VITALS: RESP 16; TEMP 97.1
--- NOTE | 2021-07-28 16:52 | P.OP ---
Date of Procedure: 07/28/21 Preoperative Diagnosis: Displaced extra-articular fracture right calcaneus Postoperative Diagnosis: Same Procedure(s) Performed: Open reduction with internal fixation right calcaneus fracture Implants: 5.0 fully threaded screw 4 hole compression plate with screws Arthrex AlloMatrix Anesthesia: SOFIA Surgeon: Sammy Law Estimated Blood Loss (ml): 20 Pathology: none sent Condition: stable Disposition: PACU Description of Procedure: Prior to the patient being brought to the operating room, anesthesia administered nerve block on the right lower extremity. Patient brought into the operative room placed on table supine position. Timeout was taken to confirm correct patient identifiers, correct site of surgery, and correct procedure. When all staff in the room in agreement with the timeout, the patient was induced and placed under general anesthesia. A well-padded tourniquet was placed on the right calf. A bump was placed underneath the right hip to internally rotate the right leg. The right leg was then prepped and draped usual manner. The leg was exsanguinated and the tourniquet inflated to 250 mmHg. Attention was directed over the lateral aspect of the calcaneus were curvilinear incision was made starting over the cuboid and ending near the calcaneal tuberosity. The incision was deepened down to the saphenous tissue careful to identify, avoid, and retract any neurovascular structures and cauterize any bleeding vessels. Blunt dissection was then carried down to level the peroneal tendons and incision was made through the soft tissue both superior and inferior to the peroneal tendons and then the tendons were reflected in a full-thickness flap off the calcaneus so that the fracture could be accessed. Under fluoroscopic visualization an elevator was used to locate the fracture. An osteotome was used to break through an open the fracture site. Saw was used to smooth the edges and also create a hinge superiorly to allow for reduction of the fracture. Once that was completed AlloMatrix was then mixed on the back table and placed directly between the fracture fragments. A guidewire for a 5.0 fully threaded headless screw was inserted in the posterior lateral calcaneus and advanced along the lateral aspect and into the anterior process. Fluoroscopic visualization both on AP and lateral views show that the wire was tracking in the proper plane and ended in the distal fragment. The overdrill was performed and then a 70 mm fully threaded headless screw was inserted across the guidewire and advanced until the distal threads engaged the anterior fracture fragment in the proximal threads engaged the cortex of the calcaneus and provided some compression. Once the screw was in place a 4 hole nitinol plate that was Won pretensioned was placed across the fracture site. It was necessary to placed underneath the peroneal tendons for placement due to the location of the fracture. Under fluoroscopic visualization the plate was adjusted until it was properly aligned over the fracture site. Temporary fixation was used to hold the plate in place. Locking screws were placed in all 4 holes of the plate. Once the screws were in place the tensioning device was removed allowing for compression of the plate. Final fluoroscopic imaging showed a reduction of the fracture line with proper placement of hardware. Any remaining AlloMatrix was then placed between the fracture fragments. The wound is then thoroughly irrigated with antibiotic saline. Deep closure was done with 2-0 Vicryl. Subcu closure done for Monocryl. And skin closure done with dot. An Arthrex jumpstart dressing was placed over all the incisions and then a bulky dry dressings applied to the right foot and ankle. The tourniquet was released and capillary refill return to all digits on the right foot. A very well-padded, well molded plaster posterior mold/sugar tong splint was applied to the right leg. The ankle was held in neutral position until the splint was dried. At that point anesthesia was reversed and the patient was taken recovery with vital signs stable.
[2021-07-28 17:14] LABS: Glucose,Whole Blood 193 mg/dL (75-99)
[2021-07-28 17:36] VITALS: BP 135/53; PULSE 95
== END 2021-07-28 17:47 | disposition home or self-care (01) ==
LOC: OR 12:27
PROVIDERS: ATTEND Podiatrist
DX: S92.051A Displaced other extraarticular fracture of right calcaneus, initial encounter for closed fracture (principal); I10 Essential (primary) hypertension; E78.5 Hyperlipidemia, unspecified; E11.9 Type 2 diabetes mellitus without complications; F41.9 Anxiety disorder, unspecified; F17.200 Nicotine dependence, unspecified, uncomplicated; M54.9 Dorsalgia, unspecified; K21.9 Gastro-esophageal reflux disease without esophagitis; G62.9 Polyneuropathy, unspecified; Z79.4 Long term (current) use of insulin; Z79.899 Other long term (current) drug therapy
CPT/HCPCS: 28415; 64447; 64445; 76942; 80053; C1713; J2250; J2710; J0690; J2405; J2001; J3010; J1170; J2795; J0330; J2704

== ENCOUNTER → 2021-10-12 | Outpatient (CLI) | payer OTHER ==
--- NOTE | 2021-10-13 19:23 | CT ---
EXAMINATION TYPE: CT ankle RT wo con CT DLP: 254.4 mGycm, Automated exposure control for dose reduction was used. DATE OF EXAM: 10/12/2021 6:38 PM COMPARISON: CT right foot 04/03/2021. CLINICAL INDICATION:Male, 46 years old with history of Z48.89 Surgical after care S92.061D Displaced, post surgery. Displaced fx. TECHNIQUE: Axial images were obtained of the right ankle without the use of IV contrast. Additional coronal and sagittal reformatted images and soft tissue and bone window were obtained for review. 3-D reconstruction was created on a separate workstation. FINDINGS: Right calcaneal fixation hardware is in place and is intact. There is good osseous fusion of the frac ture site involving the anterior calcaneus. A additional fracture which may have been occult on prior imaging or new since prior imaging is identified involving the posterior aspect of the subtalar join t and extending into the calcaneus. This is best appreciated on series 7 image 34. An irregular appea hernandez of the adjacent osseous structures could represent underlying bone in a nonunion fracture. Plantar calcaneal spurring is present. No additional fractures are identified. IMPRESSION: 1. 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 Correlate with inflammatory markers and signs or sympt oms of infection to exclude sequestrum related to osteomyelitis. Correlation with any prior's since 1 06/04/2020 could be of benefit. MRI of the foot may provide further characterization. 2. Appropriate healing changes with good osseous fusion of the of the prior anterior calcaneal fract ure with hardware in place and intact when compared to 04/03/2021.
== END | disposition home or self-care (01) ==
LOC: RADCTMAIN 18:15
PROVIDERS: ATTEND Podiatrist
DX: Z48.89 Encounter for other specified surgical aftercare (principal); S92.0 Fracture of calcaneus; X58.XXXD Exposure to other specified factors, subsequent encounter